=== PATIENT | female | born 1935 | race Caucasian/White ===

== ENCOUNTER → 2016-09-02 | Outpatient (CLI) | payer OTHER, BC ==
[~2016-09-02] VITALS: Ht 154.9 cm; Wt 55.8 kg
[~2016-09-02] MED LIST: B & O SUPPRETT1 EAC1 RC; B COMPLEX1 EACH PO; BACLOFEN 10MG T10 M1 PO; BENTYL 20 MG TA20 M1 PO; DEPAKOTE 250MG250 M1 PO; ED-SPAZ0.125 MG PO; FAMCYCLOVIR 50500 M1 PO; LORTAB PO; LUCENTIS0.3 MG/0.0 IO; MOBIC7.5 MG PO; NORVASC 5 MG TAB5 MG PO; PRED FORTE 1% EY5 M1 OP; REQUIP0.5 MG PO; VITAMIN C120 GM; VITAMIN D400 UNIT PO
--- NOTE | ~2016-09-02 | P ---
[facility] [place] [address] PROCEDURE REPORT Name: STEFANO BUCK [id number] Admission: 09/02/16 Attend Phys: Harish Meyer Discharge: Date of : 33 Report #: [id number] THIS REPORT FOR: //name// CC: Harish Samuels MD DATE OF SERVICE: 09/02/2016 PROCEDURE PERFORMED: Colonoscopy with biopsies and tattoo. HISTORY OF PRESENT ILLNESS: The patient is an 81-year-old female with a history of iron deficiency anemia. Upper endoscopy was just performed, which showed mild grade A erosive esophagitis and mild Schatzki's ring. The patient reportedly has had a colonoscopy in 10 years and was negative. No family history of colon cancer. DESCRIPTION OF PROCEDURE: The risks and benefits of the procedure were explained to the patient, those risks including but not limited to bleeding, perforation, the risk of sedation. She understood these risks and gave informed consent. Sedation was given using propofol per anesthesia. Next, a digital rectal exam was initially performed, which was normal. Next, using a standard [employer] colonoscope, the scope was placed in the patient's anus and advanced under direct vision to the cecum. The overall prep was excellent. 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 This was approximately 3 cm in size. It took up most of the lumen. Multiple biopsies were obtained. The edges were also tattooed. The remaining ascending colon was normal. The transverse and descending colon were normal. Multiple diverticula were noted throughout the sigmoid colon, no evidence of inflammation, otherwise normal. The rectal mucosa was normal. On retroflexion, no abnormalities were noted. The scope was then withdrawn and the procedure terminated. The patient tolerated the procedure well. IMPRESSION: 1. 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 2. Sigmoid diverticulosis. 3. Otherwise, normal colonoscopy. RECOMMENDATIONS: 1. Await biopsies. 2. Recommend CT scan of the abdomen and pelvis in the near future. 3. We will check labs today including CEA level. 4. The patient will need a surgical resection of mass in the near future. [address] [address] PROCEDURE REPORT Name: STEFANO BUCK Room #: REG Zachary Yates#: [id number] Admission: 09/02/16 Attend Phys: Harish Meyer Discharge: Date of : 33 Report #: [id number] Thank you for allowing me to participate in her care. <ELECTRONICALLY SIGNED> By: Harish Minor MD 09/03/16 0952 [id number] [id number] Harish Minor MD /nt
--- NOTE | ~2016-09-02 | P ---
[facility] [address] PROCEDURE REPORT Name: STEFANO BUCK [facility] #: [facility] [id number] Admission: 09/02/16 Attend Phys: Harish Meyer Discharge: Date of : 33 Report #: [id number] THIS REPORT FOR: //name// CC: Harish Samuels MD DATE OF SERVICE: 09/02/2016 PROCEDURE PERFORMED: Upper endoscopy with biopsies and esophageal dilation. HISTORY OF PRESENT ILLNESS: The patient is an 81-year-old female with a history of iron deficiency anemia. She denies any blood in her stools. Last colonoscopy apparently was 10 years ago and reportedly negative. She does complain of intermittent heartburn. She also complains of intermittent dysphagia to pills. She has had her esophagus apparently dilated in the past. Plan is for EGD and colonoscopy today. DESCRIPTION OF PROCEDURE: The risks and benefits of the procedure were explained to the patient, those risks including but not limited to bleeding, perforation and the risk of sedation. She understood these risks and gave informed consent. Sedation was given using propofol per anesthesia. Next, using a standard [employer] upper endoscope, the scope was placed to the patient's mouth and advanced under direct vision through the esophagus, stomach and into the second portion of the duodenum. The larynx was normal in appearance. The upper and mid esophagus was normal in appearance. In the distal esophagus, a mild Schatzki's ring was noted with grade A erosive esophagitis. No evidence of bleeding. Upon entering the stomach, a small hiatal hernia was noted. Overall, the gastric mucosa was normal. The pylorus was normal and patent. The duodenal bulb, first and second portion were all normal. Biopsies were obtained in the second portion of the duodenum to rule out the possibility of celiac sprue because of her history of anemia. The scope was then brought back up into the patient's stomach and a Savary guidewire was inserted through the scope, leaving the guidewire in place as the scope was then withdrawn. Next, a 45-[place] Savary dilation of the esophagus was performed without difficulty. The wire and dilator removed. The scope was reintroduced into the patient's stomach. There was no evidence of mucosal tear after dilation. The scope was then withdrawn and the procedure terminated. The patient tolerated the procedure well. IMPRESSION: 1. Mild Schatzki's ring. 2. Grade A erosive esophagitis without bleeding. 3. Small hiatal hernia. 4. Otherwise, normal upper endoscopy. RECOMMENDATIONS: [address] [address] PROCEDURE REPORT Name: STEFANO BUCK Andrea Room #: REG NANCIE Yates#: [id number] Admission: 09/02/16 Attend Phys: Harish Meyer Discharge: Date of : 33 Report #: [id number] 1. Await biopsy results. 2. Observe the patient post-dilation. 3. Would recommend trial of daily PPI therapy. 4. We will proceed with colonoscopy next today. Thank you for allowing me to participate in her care. <ELECTRONICALLY SIGNED> By: Harish Minor MD 09/03/16 0952 0912 1135 Harish Minor MD /nt
--- NOTE | ~2016-09-02 | S ---
[facility] [address] [address] SURGICAL PATH RPT PROCEDURE Name: STEFANO NYE Room #: REG [facility].#: [id number] Admission: 09/02/16 Date of : 33 Discharge: Report #: [id number] Path Case #: [id number] PATHOLOGY REPORT COLLECTION DATE: 09/02/2016 RECEIVED DATE: 09/02/2016 SUBMITTING PHYS: Dr. Harish Minor OTHER PHYS: Dr Tyesha Samuels ADDENDUM REPORT (Order Date: 09/06/2016 11:25) ADDENDUM COMMENT: This addendum is to document the physician notification. The case was discussed with Dr. Harish Minor on 09/06/16 at 9:50 a.m. The final diagnosis remains unchanged. Due to specimen processing, microsatellite instability testing is unable to be performed. Clinical correlation is recommended. (PAMLEAW:; d/t: 09/06/16) Professional services performed by [facility] at [facility] [address], [place] [address] [facility] by [facility] at [address] [place] [address], [address] [place] [address]. ELECTRONICALLY SIGNED BY: Victoria Neal M.D. DATE/TIME:09/06/2016 16:50 SPECIMEN(S) RECEIVED: A.Duodenal bx B.Cecal mass * * * * * * * * * * * * FINAL DIAGNOSIS: A. "Duodenal bx", biopsy: - Small bowel mucosa with minimal histologic alterations; no evidence of celiac sprue. B. "Cecal mass", biopsy: - INVASIVE ADENOCARCINOMA, MODERATELY DIFFERENTIATED, WITH OVERLYING ULCERATION. (SEE COMMENT) COMMENT: Specimen B is co-reviewed with Dr. Tammi Garcia. The case will be discussed with Dr. Minor and/or his office on 09/06/16. (CLW:karla; d/t: 09/05/2016) [address] [address] SURGICAL PATH RPT PROCEDURE Name: STEFANO NYE Room #: REG [facility] [id number] Admission: 09/02/16 Date of : 33 Discharge: Report #: [id number] Path Case #: [id number] PATHOLOGIST: Victoria Neal M.D. REPORT ELECTRONICALLY SIGNED BY: Victoria Neal M.D. DATE/TIME: 09/05/2016 23:08 * * * * * * * * * * * * GROSS PATHOLOGY: A. Received in formalin labeled "Stefano Nye duodenal biopsy," are four segments of davenport soft tissue measuring 1.0 x 0.8 x 0.2 cm in aggregate dimensions and ranging from 0.3 to 0.8 cm in maximum dimension. The specimen is submitted entirely in cassette A1. B. Received in formalin labeled "Stefano Nye, cecal mass," are five segments of davenport soft tissue measuring 1.0 x 1.0 x 0.2 cm in aggregate dimensions and ranging from 0.3 to 0.5 cm in maximum dimension. The specimen is submitted entirely in cassette B1. (CAA; 09/03/2016) CLINICAL HISTORY: Esophageal dilation, Schatzki's ring, gastritis, R/O celiac (on part A only) INITIAL CPT CODE(S): A; 39871 B; 47720 Professional services performed by [facility] at [facility] [address], [place] [address] Technical services performed by [facility] at [address] [place] [address], [address], [place] [address]. [facility] [address] [place] [address] PHONE: [phone] DIRECTOR: Bogdan Lopez M.D. * * * END OF REPORT * * *
[2016-09-02 11:13] LABS: ALBUMIN 3.3 g/dL (3.4-5.0); ALKALINE PHOSPHATASE 70 U/L (46-116); ANION GAP 8 mmol/L (7-16); BUN 12 mg/dL (7-18); CALCIUM 8.8 mg/dL (8.5-10.1); CHLORIDE 110 mmol/L (98-107); CO2 23 mmol/L (21-32); DIRECT BILIRUBIN < 0.1 mg/dL (<0.1-0.3); GLUCOSE 103 mg/dL (74-106); POTASSIUM 3.5 mmol/L (3.5-5.1); SGOT 16 U/L (15-37); SGPT 18 U/L (30-65); SODIUM 141 mmol/L (136-145); TOTAL BILIRUBIN 0.4 mg/dL (<0.1-1.0)
== END | disposition home or self-care (01) ==
LOC: GI 07:50
PROVIDERS: Specialist
DX: C18.0 Malignant neoplasm of cecum (principal); K57.30 Diverticulosis of large intestine without perforation or abscess without bleeding; K22.2 Esophageal obstruction; K22.10 Ulcer of esophagus without bleeding; K21.9 Gastro-esophageal reflux disease without esophagitis; K44.9 Diaphragmatic hernia without obstruction or gangrene; I10 Essential (primary) hypertension; Z98.41 Cataract extraction status, right eye; Z98.42 Cataract extraction status, left eye; Z87.891 Personal history of nicotine dependence; Z90.49 Acquired absence of other specified parts of digestive tract; Z85.51 Personal history of malignant neoplasm of bladder; Z90.710 Acquired absence of both cervix and uterus; Z98.890 Other specified postprocedural states

== ENCOUNTER → 2016-09-07 | Outpatient (CLI) | payer OTHER, BC | LOC: CAT 09:28 | DX: C18.9 Malignant neoplasm of colon, unspecified (principal); K57.90 Diverticulosis of intestine, part unspecified, without perforation or abscess without bleeding; D73.4 Cyst of spleen ==

== ENCOUNTER → 2016-10-13 | Outpatient (CLI) | payer OTHER, BC ==
[2016-10-13 07:41] LABS: HEMATOCRIT 31.9 % (37.0-47.0); HEMOGLOBIN 10.7 gm/dL (12.0-15.0); MCH 25.5 pg (26.0-34.0); MCHC 33.5 g/dL (28.0-37.0); MCV 76.1 fL (80.0-100.0); RBC 4.19 mil/uL (4.20-5.00); RDW 25.1 % (10.5-14.5); WBC 6.5 thou/uL (4.0-11.0)
[2016-10-13 08:00] LABS: CALCIUM 8.8 mg/dL (8.5-10.1); POTASSIUM 3.7 mmol/L (3.5-5.1)
[2016-10-13 08:06] LABS: TOTAL BILIRUBIN 0.2 mg/dL (<0.1-1.0); TOTAL PROTEIN 7.4 g/dL (6.4-8.2)
== END ==
LOC: CAT 07:12
DX: R10.32 Left lower quadrant pain (principal)